=== PATIENT | male | born 1935 | race Caucasian/White ===

== ENCOUNTER 2019-02-15 18:44 | Inpatient (IN) | payer MEDICARE, OTHER ==
[2019-02-15] MEDS ORDERED: diphenhydrAMINE 50 MG/ML SDV IM ONE (18:45)
[2019-02-15] MEDS ORDERED: LORazepam 2 MG/ML SDV IM ONE (18:46)
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
[2019-02-15 20:25] LABS: CHLORIDE,CL 107 mmol/L (98-107); SODIUM,NA 144 mmol/L (136-145)
[2019-02-15] MEDS ORDERED: LORazepam 2 MG/ML SDV IV PRN (20:40)
[2019-02-15] MEDS ORDERED: Haloperidol Lactate 5 MG/ML SDV IM PRN (20:54)
[2019-02-15] MEDS ORDERED: predniSONE 5 MG Tab PO ONE (21:00)
[2019-02-15] MEDS: QUEtiapine 25 MG Tab PO SCH (23:25)
[2019-02-16 08:19] VITALS: BP 133/50; PULSE 92
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
[2019-02-16] MEDS ORDERED: LORazepam 2 MG/ML SDV IM PRN (18:13)
[2019-02-16] MEDS: QUEtiapine 25 MG Tab PO SCH (19:20)
--- NOTE | 2019-02-17 07:59 | PCM.DCSUM1 ---
Discharge Summary - Hospital Course Brief History: Patient admitted for evaluation of worsening aggressive/violent behavior and increasing weakness. Dementia. Diagnosis: Stroke: No - Discharge Data Discharge Date: 02/17/19 Discharge Disposition: DC/Tfer to Hospice - Home 48 Condition: Poor - Referral to Home Health Primary Care Physician: NENA Savage Skilled Need: Hospice - Discharge Diagnosis/Problem(s) (1) Alzheimer's dementia SNOMED Code(s): 11602493 ICD Code: G30.9 - ALZHEIMER'S DISEASE, UNSPECIFIED; F02.80 - DEMENTIA IN OTH DISEASES CLASSD ELSWHR W/O BEHAVRL DISTURB Status: Chronic Priority: High Current Visit: Yes Qualifiers: Alzheimer's disease onset: unspecified onset Dementia behavioral disturbance: with behavioral disturbance Qualified Code(s): G30.9 - Alzheimer' s disease, unspecified; F02.81 - Dementia in other diseases classified elsewhere with behavioral disturbance (2) Comfort measures only status SNOMED Code(s): 21977838730074 ICD Code: Z51.5 - ENCOUNTER FOR PALLIATIVE CARE Status: Acute Priority: High Current Visit: Yes Problem Details: Patient to be placed on Hospice care at time of discharge. (3) Dementia SNOMED Code(s): 64959016 ICD Code: F03.90 - UNSPECIFIED DEMENTIA WITHOUT BEHAVIORAL DISTURBANCE Status: Chronic Priority: High Current Visit: Yes Problem Details: Worsening confusion/dementia over years. Now is refusing food. Weaker, not ambulating for the last few days. Qualifiers: Dementia type: Alzheimer's disease Dementia behavioral disturbance: with behavioral disturbance (4) Violent behavior SNOMED Code(s): 697753255 ICD Code: R45.6 - VIOLENT BEHAVIOR Status: Acute Priority: High Current Visit: Yes Problem Details: Daily/constant aggressive/violent behavior towards family/caregivers. Unable to get near him most of the time. Improved overall with Ativan, Seroquel. Patient noted to try to scratch hospital personel, verbally abusive during cares. (5) Constipation SNOMED Code(s): 41672384 ICD Code: K59.00 - CONSTIPATION, UNSPECIFIED Status: Chronic Priority: Low Current Visit: No Problem Details: stable per history (6) Peptic reflux disease SNOMED Code(s): 841764926 ICD Code: K21.9 - GASTRO-ESOPHAGEAL REFLUX DISEASE WITHOUT ESOPHAGITIS Status: Chronic Priority: Low Current Visit: No Problem Details: Stable by history. (7) Coronary artery disease SNOMED Code(s): 78118265 ICD Code: I25.10 - ATHSCL HEART DISEASE OF [place] CORONARY ARTERY W/O ANG PCTRS Status: Chronic Priority: Low Current Visit: No Problem Details: Stable by history with no recent chest pain or anginal complaints Qualifiers: Coronary Disease-Associated Artery/Lesion type: [place] artery [place] vs. transplanted heart: [place] heart Associated angina: without angina Qualified Code(s): I25.10 - Atherosclerotic heart disease of [place] coronary artery without angina pectoris (8) Dyslipidemia SNOMED Code(s): 906865277 ICD Code: E78.5 - HYPERLIPIDEMIA, UNSPECIFIED Status: Chronic Priority: Low Current Visit: No Problem Details: Under therapy (9) Osteoarthritis SNOMED Code(s): 875985169 ICD Code: M19.90 - UNSPECIFIED OSTEOARTHRITIS, UNSPECIFIED SITE Status: Chronic Priority: Low Current Visit: No Problem Details: Stable by history Qualifiers: Osteoarthritis location: multiple joints Osteoarthritis type: primary Qualified Code(s): M15.0 - Primary generalized (osteo)arthritis (10) COPD (chronic obstructive pulmonary disease) SNOMED Code(s): 75413615 ICD Code: J44.9 - CHRONIC OBSTRUCTIVE PULMONARY DISEASE, UNSPECIFIED Status : Chronic Priority: Low Current Visit: No Problem Details: Stable by history with no recent fever or bronchitic-type symptoms Qualifiers: COPD type: emphysema Emphysema type: panlobular Qualified Code(s): J43.1 - Panlobular emphysema (11) Malnutrition SNOMED Code(s): 41040567 ICD Code: E46 - UNSPECIFIED PROTEIN-CALORIE MALNUTRITION Status: Acute Priority: Medium Current Visit: Yes Problem Details: Patient is not wanting to eat. No additional specific intervention planned at this time given his placement on hospice and worsenng dementia. Qualifiers: Malnutrition type: unspecified type Qualified Code(s): E46 - Unspecified protein-calorie malnutrition - Patient Summary/Data Consults: Consultations 02/15/19 20:40 Consult to Case Management/Dietary Aid [CONS] Routine 02/15/19 20:48 Consult to Hospice [CONS] Routine Hospital Course: Significant improvement in aggressiveness/violence utilizing Ativan and Seroquel. Patient qualified for observation stay only. Hospice evaluation yesterday. Patient to be discharged home on hospice today. - Patient Instructions Diet: Regular Diet as Tolerated (See what patient might be interested in/can swallow safely. ) Activity: As Tolerated Other/Special Instructions: Hospice to take over care once you are discharged. OK to not give regular medications if patient refuses them. Try to continue with the Ativan and Seroquel best as possible in order to improve the agressive behavior. - Discharge Plan *PRESCRIPTION DRUG MONITORING PROGRAM REVIEWED*: Not Applicable *COPY OF PRESCRIPTION DRUG MONITORING REPORT IN PATIENT LAURA: Not Applicable Prescriptions/Med Rec: LORazepam [LORazepam Intensol] 1 mg PO ASDIRECTED PRN #60 ml PRN Reason: Agitation QUEtiapine [SEROquel] 25 mg PO BEDTIME #30 tablet Home Medications: Home Meds Aspirin [Halfprin] 81 mg PO BRK 03/23/16 [History] Cholecalciferol (Vitamin D3) [Vitamin D3] 2,000 unit PO 1800 03/23/16 [History] Metoprolol Tartrate 12.5 mg PO 1800 03/23/16 [History] Simvastatin 40 mg PO DAILY 03/23/16 [History] predniSONE [Prednisone] 10 mg PO DAILY 03/23/16 [History] Esomeprazole Magnesium 40 mg PO DAILY 02/15/19 [History] Erythromycin Base [Erythromycin 0.5% Ophth Oint] 1 gm EYEBOTH TID tube [Rx] LORazepam [LORazepam Intensol] 1 mg PO ASDIRECTED PRN #60 ml 02/17/19 [Rx] QUEtiapine [SEROquel] 25 mg PO BEDTIME #30 tablet 02/17/19 [Rx] Forms: ED Department Discharge Referrals: PCP,Unknown [Ordering Only Provider] - - Discharge Summary/Plan Comment DC Time >30 min.: No - General Info Date of Service: 02/17/19 Admission Dx/Problem (Free Text: Worsening dementia/confusion, weakness, refusal to eat, and aggressive/violent behavior towards caregivers. Subjective Update: Patient much more relaxed, sleeping. Continues to be confused. Only verbalized complaint was that heels are sore at times. Nursing staff propped them up. Functional Status: Reports: Pain Controlled. Denies: Tolerating Diet, Ambulating, New Symptoms - Review of Systems General: Denies: Fever, Appetite Pulmonary: Denies: Shortness of Breath, Cough Gastrointestinal: Denies: Diarrhea, Vomiting Musculoskeletal: Reports: Other (chronic pain patient/arthritis) Skin: Reports: Other (redness on buttocks/dry skin) Neurological: Reports: Confusion Psychiatric: Reports: Confusion - Patient Data Vitals - Most Recent: Last Vital Signs Temp 37.0 C 02/16/19 08:00 Pulse 92 02/16/19 08:00 Resp 18 02/16/19 08:00 BP 133/50 L 02/16/19 08:00 Pulse Ox 95 02/15/19 21:02 Weight - Most Recent: 50.802 kg I&O - Last 24 hours: Intake & Output 02/16/19 02/17/19 02/17/19 22:59 06:59 14:59 Intake Total 100 0 Output Total 250 100 Balance -150 -100 Med Orders - Current: Current Medications Haloperidol Lactate (Haldol) 5 mg IM ONETIME PRN PRN Reason: Agitation Lorazepam (Ativan) 1 mg IM Q6H PRN PRN Reason: Agitation Last Admin: 02/16/19 23:32 Dose: 1 mg Quetiapine Fumarate (Seroquel) 25 mg PO BEDTIME CARA Last Admin: 02/16/19 19:20 Dose: 25 mg Discontinued Medications Diphenhydramine HCl (Benadryl) 50 mg IM ONETIME ONE Stop: 02/15/19 18:46 Last Admin: 02/15/19 18:58 Dose: 50 mg Lorazepam (Ativan) 1 mg IM ONETIME ONE Stop: 02/15/19 18:47 Last Admin: 02/15/19 18:54 Dose: 1 mg Lorazepam (Ativan) 1 mg IV Q6H PRN PRN Reason: Agitation Last Admin: 02/15/19 21:21 Dose: 1 mg Prednisone (Prednisone) 10 mg PO ONETIME ONE Stop: 02/15/19 21:01 Last Admin: 02/15/19 21:23 Dose: 10 mg - Exam Quality Assessment: Reports: Skin Breakdown General: Reports: Sedated, Lethargic HEENT: Reports: Pupils Equal, Pupils Reactive Neck: Reports: Supple Lungs: Reports: Normal Respiratory Effort Cardiovascular: Reports: Regular Rate, Regular Rhythm GI/Abdominal Exam: Soft, Non-Tender, No Distention (Male) Exam: Deferred Rectal (Males) Exam: Deferred Back Exam: Denies: Muscle Spasm Extremities: No Pedal Edema, Normal Capillary Refill Skin: Reports: Warm, Dry, Other (persistent redness in area of buttocks, very dry skin, multiple areas of skin affected by actinics/SKs, and probable basal cells) Neurological: Reports: No New Focal Deficit *Q Meaningful Use (DIS) - VTE *Q VTE Pharmacological Contraindications *Q: Tx/Proc Refused by Pt
[2019-02-17 08:20] LABS: CHLORIDE,CL 106 mmol/L (98-107); SODIUM,NA 143 mmol/L (136-145)
[2019-02-17] MEDS: Erythromycin Base 0.5% Ophth Oint 3.5 GM Tube EYEBOTH SCH ×2 (08:40→11:09)
[2019-02-17] MEDS ORDERED: Ketorolac 60 MG/2 ML SDV IM ONE (11:44)
--- NOTE | 2019-02-17 11:45 | PCM.SN ---
- Free Text/Narrative Note: Note the patient discharged by Dr. Valladares earlier this morning. Nonspecific pain prior to discharge with no history of fall, injury, etc. IM Toradol given prior to discharge for symptomatic relief. Note comfort care.
== END 2019-02-17 13:30 | disposition hospice, home (50) | DRG 880 ==
LOC: LL.ED 18:44 → LL.MS 20:15 → UNDOADMIN 20:15 → LL.MS 20:40
PROVIDERS: ADMIT Emergency Medicine; ATTEND Nurse Practitioner
DX: R45.6 Violent behavior (principal); F02.81 Dementia in other diseases classified elsewhere, unspecified severity, with behavioral disturbance; E46 Unspecified protein-calorie malnutrition; Z68.1 Body mass index [BMI] 19.9 or less, adult; M19.90 Unspecified osteoarthritis, unspecified site; G89.29 Other chronic pain; M54.9 Dorsalgia, unspecified; G30.9 Alzheimer's disease, unspecified; M54.2 Cervicalgia; Z51.5 Encounter for palliative care; H81.10 Benign paroxysmal vertigo, unspecified ear; F09 Unspecified mental disorder due to known physiological condition; K21.9 Gastro-esophageal reflux disease without esophagitis; E78.5 Hyperlipidemia, unspecified; I25.10 Atherosclerotic heart disease of native coronary artery without angina pectoris; L57.0 Actinic keratosis; H91.90 Unspecified hearing loss, unspecified ear; H54.7 Unspecified visual loss; M15.0 Primary generalized (osteo)arthritis; E11.51 Type 2 diabetes mellitus with diabetic peripheral angiopathy without gangrene; L82.1 Other seborrheic keratosis; J43.1 Panlobular emphysema; E78.00 Pure hypercholesterolemia, unspecified; Z66 Do not resuscitate; Z87.11 Personal history of peptic ulcer disease; Z85.038 Personal history of other malignant neoplasm of large intestine; K59.09 Other constipation; N40.1 Benign prostatic hyperplasia with lower urinary tract symptoms; Z91.041 Radiographic dye allergy status; N39.498 Other specified urinary incontinence; M81.0 Age-related osteoporosis without current pathological fracture; F41.9 Anxiety disorder, unspecified; F32.9 Major depressive disorder, single episode, unspecified; Z85.828 Personal history of other malignant neoplasm of skin; Z95.828 Presence of other vascular implants and grafts; M10.9 Gout, unspecified; R45.1 Restlessness and agitation; R41.0 Disorientation, unspecified; R41.82 Altered mental status, unspecified; Z88.5 Allergy status to narcotic agent; Z88.8 Allergy status to other drugs, medicaments and biological substances; Z79.82 Long term (current) use of aspirin; Z79.52 Long term (current) use of systemic steroids; Z79.899 Other long term (current) drug therapy; Z98.49 Cataract extraction status, unspecified eye; I25.2 Old myocardial infarction; Z95.5 Presence of coronary angioplasty implant and graft; Z87.01 Personal history of pneumonia (recurrent); Z90.89 Acquired absence of other organs
CPT/HCPCS: 36415; 51702; 80053; 81001; 83735; 85025; 96372; 99285-25; A9270-GY; J1200; J1885; J2060